=== PATIENT | female | born 1985 | race Caucasian/White ===

== ENCOUNTER 2018-09-18 19:20 | Inpatient (IN) | payer MEDICAID ==
[~2018-09-18] VITALS: Ht 148.6 cm; Wt 74.5 kg
[2018-09-18 19:15] VITALS: Ht 148.6 cm; Wt 74.5 kg
[~2018-09-18 19:20] MED LIST: CALC600T5 PO; FER325 PO; PREN1TAB62 PO
[2018-09-18 19:35] VITALS: BP 109/67; PULSE 80; RESP 18
--- NOTE | 2018-09-18 23:28 | HP ---
Date/Time of Note Date/Time of Note DATE: 09/18/18 TIME: 23:26 OB - History Hx of Present Chief Complaint: contractions Estimated Due Date: Oct 07, 2018 : 4 Para: 3 Spontaneous : 0 Therapeutic : 0 Care: Good Care Ultrasounds: Normal mid trimester US Obstetrical Complications: None Medical Complications: None Past Family/Social History * Past Medical, Surgical, Family and Obstetric Histories reviewed from chart. GBS Status: Negative OB Admission Exam Physical Exam HEENT: WNL Heart: Rhythm Normal Lungs: Clear, Equal Abdomen: WNL Extremities: Normal Reflexes: Normal Cervical Dilatation: 4cm Effacement: 50% Station: -1 Membranes: Intact Heart Rate: 120's Accelerations: Accelerations Present Decelerations: No Decelerations Varibility: Moderate Contractions on Admission: < 5 Minutes Apart OB Assessment/Plan Reason for admission: other Other Assessment: Labor contraction Plan: Expectant Management ADDIE STINSON MD Sep 18, 2018 23:28
[2018-09-19] MEDS ORDERED: CARBOPROST 250 MCG INJ IM PRN
[2018-09-19] MEDS ORDERED: MISOPROSTOL 200 MCG TAB PR PRN
[2018-09-19] MEDS ORDERED: LIDOCAINE 1% (MPF) 30 ML INJ INJ PRN
[2018-09-19] MEDS ORDERED: BUTORPHANOL 1 MG INJ IV PRN
[2018-09-19] MEDS ORDERED: BUTORPHANOL 2 MG INJ IV PRN
[2018-09-19] MEDS ORDERED: METHYLERGONOVINE 0.2 MG INJ IM PRN
[2018-09-19] MEDS ORDERED: OXYTOCIN 30 UNITS/LR 500 ML IV SCH ×2
[2018-09-19] MEDS ORDERED: IBUPROFEN 600 MG TAB PO PRN
[2018-09-19] MEDS ORDERED: OXYTOCIN 30 UNITS/LR 500 ML IV PRN
[2018-09-19] MEDS: LACTATED RINGER'S 1,000 ML IV SCH ×4 (01:41→21:38)
--- NOTE | 2018-09-19 03:21 | TRIAGE ---
OB Triage Datetime Report Generated by CPN: 09/19/2018 03:21 Datetime: 09/19/2018 02:03 Labor Evaluation Frequency: 3-8 Monitor Mode: External Duration (sec)2399: 40-140 Quality: Moderate Pattern: Normal: <= 5 Contractions in 10 Minutes Resting Tone [place]: Relaxed Heart Rate FHR Baseline Rate: 130 Monitor Mode: External US Variability: Moderate 6-25 bpm Accelerations: 15X15 Decelerations: None Category: Category I Datetime: 09/19/2018 00:59 Labor Evaluation Frequency: 2-5 Monitor Mode: External Duration (sec)2399: 40-180 Quality: Moderate Pattern: Normal: <= 5 Contractions in 10 Minutes Resting Tone [place]: Relaxed Heart Rate FHR Baseline Rate: 130 Monitor Mode: External US Variability: Moderate 6-25 bpm Accelerations: 15X15 Decelerations: None Category: Category I Datetime: 09/19/2018 00:00 Labor Evaluation Frequency: 2-5 Monitor Mode: External Duration (sec)2399: 40-120 Quality: Mild Pattern: Normal: <= 5 Contractions in 10 Minutes Resting Tone [place]: Relaxed Heart Rate FHR Baseline Rate: 135 Monitor Mode: External US Variability: Moderate 6-25 bpm Accelerations: 15X15 Decelerations: None Category: Category I Datetime: 09/18/2018 23:22 Vaginal Exam Dilatation (cms): 3.5 Effacement (%): 60 Station: -3 Exam By: drDusty delrolandaad Membrane Status: Intact Datetime: 09/18/2018 23:13 Monitor Mode: External Datetime: 09/18/2018 23:01 Vaginal Exam Dilatation (cms): 3.0 Effacement (%): 60 Station: -3 Exam By: azy k RN Datetime: 09/18/2018 23:00 Labor Evaluation Frequency: 3-9 Monitor Mode: External Duration (sec)2399: 40-100 Quality: Moderate Pattern: Normal: <= 5 Contractions in 10 Minutes Resting Tone [place]: Relaxed Heart Rate FHR Baseline Rate: 130 Monitor Mode: External US Variability: Moderate 6-25 bpm Accelerations: 15X15 Decelerations: None Category: Category I Datetime: 09/18/2018 22:18 Monitor Mode: External Monitor Mode: External US Datetime: 09/18/2018 22:00 Comments: pt is walking on the unit Datetime: 09/18/2018 21:04 Labor Evaluation Frequency: 1-8 Monitor Mode: External Duration (sec)2399: 40-90 Quality: Moderate Pattern: Normal: <= 5 Contractions in 10 Minutes Resting Tone [place]: Relaxed Heart Rate FHR Baseline Rate: 135 Monitor Mode: External US Variability: Moderate 6-25 bpm Accelerations: 15X15 Decelerations: None Category: Category I Datetime: 09/18/2018 20:59 Vaginal Exam Dilatation (cms): 2.5 Effacement (%): 60 Station: -3 Exam By: DR. DELSHAD Membrane Status: Intact Datetime: 09/18/2018 20:27 Vaginal Exam Dilatation (cms): 4.0 Effacement (%): 60 Station: -3 Exam By: azy k RN Membrane Status: Intact Cervix, Consistency: Soft Cervix, Position: Posterior Datetime: 09/18/2018 20:10 Labor Evaluation Frequency: 1-6 Monitor Mode: External Duration (sec)2399: 40-90 Quality: Moderate Pattern: Normal: <= 5 Contractions in 10 Minutes Resting Tone [place]: Relaxed Heart Rate FHR Baseline Rate: 135 Monitor Mode: External US Variability: Moderate 6-25 bpm Accelerations: 15X15 Decelerations: None Category: Category I Datetime: 09/18/2018 19:47 Time of Arrival: 09/18/2018 19:13 EGA: 37.2 Arrived By: Ambulatory Arrived From: Home Chief Complaint: UC's, pain 7/10 Movement: Present Contractions: Regular Time Contractions Began: 09/18/2018 15:00 Contractions: 5 minutes Rupture of Membranes: Denies Vaginal Bleeding: None Vaginal Discharge: Denies Recent Sexual Intercouse: Denies Abdominal Trauma: Not Applicable Patient Complaints: Contractions Time Provider Notified: 09/18/2018 20:31 Provider Notified: Delshad Initial Plan: EFM, SVE Datetime: 09/18/2018 19:35 Stage of : OB Triage Assessment Type: Triage Maternal Assessment Level of Consciousness: Fully Conscious DTR's/Clonus: DTRs 2+; No Clonus Headache: Denies Blurred Vision: No Respiratory Effort: Unlabored; Regular Rhythm; Equal Expansion Breath Sounds, Left: Clear and Equal Breath Sounds, Right: Clear and Equal Nausea/Vomiting: Denies RUQ Epigastric Pain: Denies Lower Extremities Edema: None Degree: None Upper Extremities Edema: None Degree: None Facial Edema: None Temperature Route: Oral Fall Risk Assessment History of Falling: (0) No Secondary Diagnosis: (0) No Ambulatory Aid: (0) Bedrest/Nurse Assist IV Therapy: (0) No Gait: (0) Normal/Bedrest/Immobile Mental Status: (0) Oriented to Own Ability Fall Score: 0 Fall Risk Score Definition: No Risk: No action required Pain Assessment Pain Scale: 7 Pain Presence: Intermittent Pain Type: Contraction Pain Location: Abdomen; Back Pain Goal: 7 Pain Relief Measures: Comfort Measures Datetime: 09/18/2018 19:33 Monitor Mode: External Monitor Mode: External US Datetime: 09/18/2018 19:30 Arrived From: Home
[2018-09-19] MEDS ORDERED: LACTATED RINGER'S 1,000 ML IV PRN (04:00)
[2018-09-20] MEDS: LACTATED RINGER'S 1,000 ML IV SCH ×2 (05:23→13:48)
[2018-09-20] MEDS ORDERED: ACETAMINOPHEN 325 MG TAB PO PRN (09:00)
--- NOTE | 2018-09-20 17:37 | QN ---
Documentation Comment Patient states her contractions have spaced out Afebrile VSS Strip Reactive No cervical change Patient is not in active labor D/C home ADDIE STINSON MD Sep 20, 2018 17:37
--- NOTE | 2018-09-20 17:38 | DS ---
Date/Time of Note Date/Time of Note DATE: 09/20/18 TIME: 17:38 Obstetrical Discharge Record Final Diagnosis Final Diagnosis: Term not delivered Condition on Discharge Physical Assessment Voiding: Yes Bowel Movement: Yes Calf Tenderness: No Patient Condition: Stable ADDIE STINSON MD Sep 20, 2018 17:38
== END 2018-09-20 17:48 | disposition home or self-care (01) | DRG 833 ==
LOC: OBT 19:20 → L-D 19:22 → OBT 09-19 01:10 → L-D 09-19 01:10
PROVIDERS: ADMIT Obstetrics & Gynecology; ATTEND Obstetrics & Gynecology
DX: O60.03 Preterm labor without delivery, third trimester (principal); Z3A.37 37 weeks gestation of pregnancy
CPT/HCPCS: 76815; 76818; 85025; 85610; 85730; 86592; 86850; 86900; 86901; 87340; J7120